=== PATIENT | male | born 1990 | race Caucasian/White ===

== ENCOUNTER 2016-09-12 20:47 | Emergency (ER) | payer SELFPAY ==
[2016-09-12 21:00] VITALS: BP 137/85
--- NOTE | 2016-09-12 21:08 | EDM.PDOC ---
ED HPI RENAL/ - General Chief Complaint: Genitourinary Problem Stated Complaint: BACK PAIN PAIN DURING URINATION Time Seen by Provider: 09/12/16 20:52 Source of Information: Reports: Patient History Limitations: Reports: No limitations - History of Present Illness INITIAL COMMENTS - FREE TEXT/NARRATIVE: The patient presents with dysuria. This has been going on for about 3 weeks. The pain will come and go and at times he may have some low back pain. He has no abdominal pain, nausea or vomiting. He has never had a UTI before but he is concerned he may have one. Timing/Duration: Reports: Week(s): (3) Location: Reports: urethral Quality: Reports: burning Severity: mild Context: Denies: sick contact, recent surgery, recent trauma, lifting, activity/ exercise Associated Symptoms: Reports: dysuria, frequency, urgency. Denies: testicular pain, penile discharge - Related Data Allergies/ADRs: Allergies Allergy/AdvReac Type Severity Reaction Status Date / Time No Known Allergies Allergy Verified 09/12/16 21:00 Home Meds: Home Meds Doxycycline [Vibramycin] 100 mg PO Q12HR #14 cap 09/12/16 [Rx] Past Medical History - Past Health History Medical/Surgical History: Denies Medical/Surgical History Social & Family History - Tobacco Use Smoking Status *Q: Current Every Day Smoker Years of Tobacco use: 8 Packs/Tins Daily: 0.5 Used Tobacco, but Quit: No Second Hand Smoke Exposure: No - Recreational Drug Use Recreational Drug Use: No ED ROS GENERAL - Review of Systems Review Of Systems: See Below Constitutional: Reports: no symptoms HEENT: Reports: No symptoms Respiratory: Reports: No Symptoms Cardiovascular: Reports: No symptoms Endocrine: Reports: no symptoms GI/Abdominal: Reports: No symptoms : Reports: dysuria Musculoskeletal: Reports: no symptoms Skin: Reports: no symptoms Neurological: Reports: No Symptoms ED EXAM, RENAL/ - Physical Exam Exam: See Below Exam Limited By: No limitations General Appearance: alert, no apparent distress Ears: normal external exam Nose: normal inspection Head: atraumatic, normocephalic Neck: normal inspection Respiratory/Chest: no respiratory distress, lungs clear, normal breath sounds Cardiovascular: regular rate, rhythm, no edema, no murmur GI/Abdominal: soft, non tender, no organomegaly, no mass Back Exam: normal inspection Extremities: normal inspection Course - Vital Signs Last Recorded V/S: Last Vital Signs Temp 98.4 F 09/12/16 20:57 Pulse 86 09/12/16 20:57 Resp 18 09/12/16 20:57 BP 137/85 09/12/16 20:57 Pulse Ox 99 09/12/16 20:57 - Orders/Labs/Meds Labs: Laboratory Tests 09/12/16 Range/Units 21:00 Urine Color Yellow (Yellow) Urine Appearance Clear (Clear) Urine pH 6.5 (5.0-8.0) Ur Specific [place] 1.020 (1.005-1.030) Urine Protein Negative (Negative) Urine Glucose (UA) Negative (Negative) Urine Ketones Negative (Negative) Urine Occult Blood Negative (Negative) Urine Nitrite Negative (Negative) Urine Bilirubin Negative (Negative) Urine Urobilinogen 0.2 (0.2-1.0) Ur Leukocyte Esterase Trace H (Negative) Urine RBC Not seen (0-5) /hpf Urine WBC 0-5 (0-5) /hpf Ur Transition Epith Cell 0-5 (0-5) Urine Bacteria Not seen (FEW) /hpf Urine Mucus Not seen (FEW) /hpf - Re-Assessments/Exams Free Text/Narrative Re-Assessment/Exam: 09/12/16 21:44 His UA just was positive for a trace of leukocyte esterase. He said this did happen about 1 year ago and he was put on doxycycline and that helped. He does drink lots of fluids and he may have diluted his urine. I will try him on some doxycycline for a week. Departure - Departure Time of Disposition: 21:50 Disposition: Home, Self-Care 01 Condition: good Clinical Impression: Dysuria Prescriptions: Doxycycline [Vibramycin] 100 mg PO Q12HR #14 cap Referrals: Lori Gamboa PA-C [Physician Plumbing Hardware Assembler] - 1 Week Forms: ED Department Discharge Additional Instructions: Take the doxycycline 2 times per day for 1 week. Please return if you are worse.
== END 2016-09-12 21:57 | disposition home or self-care (01) ==
LOC: JD.ED 20:47
DX: R30.0 Dysuria (principal); F17.210 Nicotine dependence, cigarettes, uncomplicated
CPT/HCPCS: 81001; 99283

== ENCOUNTER 2017-05-18 19:23 | Emergency (ER) | payer SELFPAY ==
[2017-05-18 20:06] VITALS: BP 131/84
--- NOTE | 2017-05-18 21:18 | EDM.PDOC ---
ED HPI GENERAL MEDICAL PROBLEM - General Chief Complaint: General Stated Complaint: POSSIBLE TOOTH INFECTION Time Seen by Provider: 05/18/17 20:49 Source of Information: Reports: Patient History Limitations: Reports: No Limitations - History of Present Illness INITIAL COMMENTS - FREE TEXT/NARRATIVE: 26 year old male presents for evaluation and treatment of pain to the right upper molar. Reports pain started about 2 days ago and has steadily worsened. States the pain is in the right upper molar. Reports about 4 months ago he had a root canal done to the molar, no cap placed. Patient reports earlier he appreciated a "blister" to the surrounding tooth. Reports it popped and he developed a bad taste to his mouth. He reports associated facial pain, right ear pain, decreased sleep due to the pain. No fevers, chills, nausea or vomiting. Patient did call and make a dental appointment. Has an appointment with dental next Friday. Duration: Day(s): (2) Treatments PAPER CONE MACHINE TENDER: Reports: Other (see below) Other Treatments PAPER CONE MACHINE TENDER: motrin 4 hours ago Tooth/Teeth Pain Score (Numeric/FACES): 8 - Related Data Allergies Allergy/AdvReac Type Severity Reaction Status Date / Time No Known Allergies Allergy Verified 05/18/17 20:02 Home Meds: Home Meds . [No Known Home Meds] 05/18/17 [History] Past Medical History - Past Health History Medical/Surgical History: Denies Medical/Surgical History Social & Family History - Family History Family Medical History: Noncontributory - Tobacco Use Smoking Status *Q: Current Every Day Smoker Years of Tobacco use: 8 Packs/Tins Daily: 0.5 Used Tobacco, but Quit: No Second Hand Smoke Exposure: No - Caffeine Use Caffeine Use: Reports: Coffee, Energy Drinks, Soda - Recreational Drug Use Recreational Drug Use: No ED ROS GENERAL - Review of Systems Review Of Systems: See Below Constitutional: Denies: Fever HEENT: Reports: Dental Pain (right upprt molar), Ear Pain (right), Sinus Problem (right maxillary) GI/Abdominal: Denies: Nausea, Vomiting ED EXAM, GENERAL - Physical Exam Exam: See Below Exam Limited By: No Limitations General Appearance: Alert, WD/WN, Mild Distress Eye Exam: Bilateral Eye: Normal Inspection Ears: Normal External Exam, Normal Canal, Hearing Grossly Normal, Normal TMs Ear Exam: Bilateral Ear: Canal Normal, TM normal Nose: Normal Inspection Throat/Mouth: Normal Inspection, Normal Lips, Normal Oropharynx, Normal Voice, No Airway Compromise, Other (dental pain and tenderness to #3; swelling to the gums surrounding #3, dental abscess #3) Neck: Normal Inspection Respiratory/Chest: No Respiratory Distress, Lungs Clear, Normal Breath Sounds Cardiovascular: Normal Peripheral Pulses, Regular Rate, Rhythm Neurological: Alert, Oriented, Normal Cognition Psychiatric: Normal Affect, Normal Mood Skin Exam: Warm, Dry, Normal Color Course - Vital Signs Last Recorded V/S: Last Vital Signs Temp 36.6 C 05/18/17 20:03 Pulse 92 05/18/17 20:03 Resp BP 131/84 05/18/17 20:03 Pulse Ox 98 05/18/17 20:03 Departure - Departure Time of Disposition: 21:18 Disposition: Home, Self-Care 01 Condition: Good Clinical Impression: Dental abscess - Discharge Information Instructions: Dental Abscess, [id number] Referrals: Lori Gamboa PA-C [Primary Care Provider] - Forms: ED Department Discharge Additional Instructions: Rx for percocet 1-2 every 4-6 hours prn pain #20 Rx for augmetin 875-125 1 tab PO bid x 10 days [id number] ibuprofen as needed for pain. 600 mg every 6 hours. Percocet 1- 2 tabs every 4-6 hours as needed for pain. Do not drive or operate machinery within 12 hours of taking the Percocet. Percocet can be habit forming, I recommend you take as few of these as needed to control your pain. Augmentin 1 tab twice a day for 10 days. Take this with food. Recommend yogurt or a probiotic. Follow-up with dental as soon as you are able to. Please return to ER if your symptoms change or worsen.
== END 2017-05-18 21:36 | disposition home or self-care (01) ==
LOC: JD.ED 19:23
DX: K04.7 Periapical abscess without sinus (principal); F17.210 Nicotine dependence, cigarettes, uncomplicated
CPT/HCPCS: 99283

== ENCOUNTER 2018-02-19 21:23 | Emergency (ER) | payer OTHER ==
[2018-02-19 21:32] VITALS: BP 126/81
[2018-02-19] MEDS ORDERED: Penicillin V Potassium 500 MG Tab PO ONE (22:20)
--- NOTE | 2018-02-19 22:24 | EDM.PDOC ---
ED HPI GENERAL MEDICAL PROBLEM - General Chief Complaint: ENT Problem Stated Complaint: TOOTH PAIN Time Seen by Provider: 02/19/18 22:04 Source of Information: Reports: Patient, Old Records (ED 05/18/2017), Other ([place]) History Limitations: Reports: No Limitations - History of Present Illness INITIAL COMMENTS - FREE TEXT/NARRATIVE: The patient states that he has had a right upper toothache for the past 2 days, waxing and waning. He states that he had a prior root canal to that tooth. He states that he saw a blister next visit to this morning, which popped, giving him a bad taste in his mouth. He states that he has been taking ibuprofen, which has not been adequately helping. He states that he cannot get in to see a dentist for a month. Medical records from 05/18/2017 reflect a very similar story, including a right upper molar, status post a root canal, with a visible blister that popped. At that visit, the patient was prescribed 20 tablets of Percocet and a ten-day prescription for Augmentin. When asked about that visit now, the patient states that it was a different tooth that was the problem, that he did go to a dentist after that, and that he subsequently had a root canal. Review of the [place] PMP[place], however, indicates that the last time that the patient was prescribed an opioid was that last ED visit on 05/18/2017. The patient does not have a PCP. Oral/Mouth Pain Score (Numeric/FACES): 7 - Related Data Allergies Allergy/AdvReac Type Severity Reaction Status Date / Time No Known Allergies Allergy Verified 02/19/18 21:30 Home Meds: Home Meds . [No Known Home Meds] 05/18/17 [History] Past Medical History - Past Health History Medical/Surgical History: Denies Medical/Surgical History Social & Family History - Family History Family Medical History: Noncontributory - Tobacco Use Smoking Status *Q: Current Every Day Smoker Years of Tobacco use: 11 Packs/Tins Daily: 0.5 - Caffeine Use Caffeine Use: Reports: Coffee - Alcohol Use Alcohol Use History: No - Recreational Drug Use Recreational Drug Use: No - Living Situation & Occupation Living situation: Reports: , with Spouse, with Family (3 daughters) ED ROS ENT - Review of Systems Review Of Systems: ROS reveals no pertinent complaints other than HPI. ED EXAM, ENT - Physical Exam Exam: See Below Exam Limited By: No Limitations General Appearance: Alert, WD/WN, No Apparent Distress Eye Exam: Bilateral Eye: EOMI, Normal Inspection Ears: Normal External Exam, Normal Canal, Hearing Grossly Normal, Normal TMs Nose: Normal Inspection, Normal Mucousa, No Blood Mouth/Throat: Normal Lips, Normal Oropharynx, Other (Tooth #1 absent. Tooth #3 ( the tooth of concern) with anterior summer. Tooth #5 with anterior summer. Teeth # 5, 6, 7, 8 with significant gingivitis. Tooth #9 with summer. Tooth #10 with extensive summer. Teeth #10, 11, 12 with significant gingivitis. Tooth #14 with summer. Tooth #16 absent. Tooth #17 with anterior summer. Tooth #18 absent. Tooth #19 with filling. Tooth #23 with anterior summer. Teeth #29, 30 absent. No obvious dental abscess.) Head: Atraumatic, Normocephalic Neck: Normal Inspection, Supple, Non-Tender, Full Range of Motion. No: Lymphadenopathy (L), Lymphadenopathy (R) Course - Vital Signs Last Recorded V/S: Last Vital Signs Temp 36.8 C 02/19/18 21:27 Pulse 70 02/19/18 21:27 Resp 18 02/19/18 21:27 BP 126/81 02/19/18 21:27 Pulse Ox 95 02/19/18 21:27 - Orders/Labs/Meds Meds: Medications Discontinued Medications Generic Name Dose Route Start Last Admin Trade Name Freq PRN Reason Stop Dose Admin Penicillin V Potassium 500 mg 02/19/18 22:20 02/19/18 22:36 Veetids PO 02/19/18 22:21 500 mg ONETIME ONE Administration - Re-Assessments/Exams Free Text/Narrative Re-Assessment/Exam: 02/19/18 22:21 The patient appears to have extensive dental disease, although I do not see a specific infection around tooth #3. Nevertheless, I will start the patient on oral penicillin. He prefers to obtain that through [facility]. The patient declined an offer for prescription naproxen. We will provide the patient with a list of local dentists that hopefully he can see in less than one month. Departure - Departure Time of Disposition: 22:21 Disposition: Home, Self-Care 01 Condition: Good Clinical Impression: Dentalgia, Dental decay - Discharge Information *PRESCRIPTION DRUG MONITORING PROGRAM REVIEWED*: Yes *COPY OF PRESCRIPTION DRUG MONITORING REPORT IN PATIENT ERIKA: No Referrals: PCP,None [Primary Care Provider] - Forms: ED Department Discharge Additional Instructions: You were seen in the emergency room for an upper right toothache. On examination, you have extensive dental decay, however, no specific infection was seen around the painful tooth. You have been started on the antibiotic penicillin. A prescription for penicillin has been provided. Take one tablet every 6 hours, as prescribed. Finish the entire prescription unless told otherwise by a Dentist. A list of local dentists has been provided to you. We recommend that you follow- up within 10 days, if at all possible. If any other problems, please do not hesitate to return to the ER.
== END 2018-02-19 22:35 | disposition home or self-care (01) ==
LOC: JD.ED 21:23
DX: K02.9 Dental caries, unspecified (principal); F17.210 Nicotine dependence, cigarettes, uncomplicated
CPT/HCPCS: 99282; A9270; 99283

== ENCOUNTER 2019-07-23 19:23 | Emergency (ER) | payer BC ==
[2019-07-23 19:58] VITALS: BP 138/81; PULSE 81
--- NOTE | 2019-07-23 20:12 | EDM.PDOC ---
ED HPI GENERAL MEDICAL PROBLEM - General Chief Complaint: ENT Problem Stated Complaint: EYE GOOP Time Seen by Provider: 07/23/19 20:04 Source of Information: Reports: Patient History Limitations: Reports: No Limitations - History of Present Illness INITIAL COMMENTS - FREE TEXT/NARRATIVE: Patient is unfortunate 28-year-old male who presents emergency Department today with complaint of I lateral eye drainage. Patient reports she' s had cough congestion runny nose for the past 3 days no fever no chills no nausea no vomiting today this morning he woke up with eye matted shut and purulent drainage from bilateral conjunctiva, fever no chills no chest pain no shortness of breath - Related Data Allergies Allergy/AdvReac Type Severity Reaction Status Date / Time No Known Allergies Allergy Verified 07/23/19 19:58 Home Meds: Home Meds Polymyxin B Sulf/Trimethoprim [Polytrim Eye Drops] 4 drop EYEBOTH Q4H 5 Days #1 bottle 07/23/19 [Rx] Past Medical History - Past Health History Medical/Surgical History: Denies Medical/Surgical History Social & Family History - Family History Family Medical History: Noncontributory - Tobacco Use Smoking Status *Q: Never Smoker Second Hand Smoke Exposure: No - Caffeine Use Caffeine Use: Reports: None - Recreational Drug Use Recreational Drug Use: No - Living Situation & Occupation Living situation: Reports: , with Spouse, with Family (3 daughters) ED ROS ENT - Review of Systems Review Of Systems: See Below Constitutional: Denies: Fever, Chills HEENT: Reports: Other (eye drainage) ED EXAM, ENT - Physical Exam Exam: See Below Exam Limited By: No Limitations General Appearance: Alert, WD/WN, Mild Distress Eye Exam: Bilateral Eye: Other ( bilateral conjunctival drainage) Nose: Normal Inspection, Normal Mucousa, No Blood Mouth/Throat: Normal Inspection, Normal Gums, Normal Lips, Normal Oropharynx, Normal Teeth Head: Atraumatic, Normocephalic Neck: Normal Inspection, Supple, Non-Tender, Full Range of Motion Respiratory/Chest: No Respiratory Distress, Lungs Clear, Normal Breath Sounds, No Accessory Muscle Use, Chest Non-Tender Cardiovascular: Normal Peripheral Pulses, Regular Rate, Rhythm, No Edema, No Gallop, No JVD, No Murmur, No Rub Back: Normal Inspection, Full Range of Motion Extremities: Normal Inspection, Normal Range of Motion, Non-Tender, No Pedal Edema, Normal Capillary Refill Neurological: Alert, Oriented Skin: Warm, Dry Course - Vital Signs Last Recorded V/S: Last Vital Signs Temp 97.0 F 07/23/19 19:57 Pulse 81 07/23/19 19:57 Resp 16 07/23/19 19:57 BP 138/81 07/23/19 19:57 Pulse Ox 100 07/23/19 19:57 Departure - Departure Time of Disposition: 20:11 Disposition: Still A Patient 28 Clinical Impression: Conjunctivitis Qualifiers: Conjunctivitis type: acute Acute conjunctivitis type: bacterial Laterality: bilateral Qualified Code(s): H10.33 - Unspecified acute conjunctivitis, bilateral - Discharge Information Prescriptions: Polymyxin B Sulf/Trimethoprim [Polytrim Eye Drops] 4 drop EYEBOTH Q4H 5 Days #1 bottle Referrals: PCP,None [Primary Care Provider] - Forms: ED Department Discharge, ED Return to Work/School Form Additional Instructions: Home, rest, no work until on antibiotics for 24 hours, return as needed for worsening condition Sepsis Event Note - Evaluation Sepsis Screening Result: No Definite Risk - Focused Exam Vital Signs: Vital Signs Temp Pulse Resp BP Pulse Ox 07/23/19 19:57 97.0 F 81 16 138/81 100 Date Exam was Performed: 07/23/19 Time Exam was Performed: 20:09
== END 2019-07-23 20:38 | disposition still patient (30) ==
LOC: JD.ED 19:23
DX: H10.33 Unspecified acute conjunctivitis, bilateral (principal)
CPT/HCPCS: 99282; 99283

== ENCOUNTER 2020-05-07 10:45 | Emergency (ER) | payer BC ==
[2020-05-07 11:26] VITALS: BP 123/78; PULSE 88
[2020-05-07] MEDS ORDERED: Cyclobenzaprine 10 MG Tab PO ONE (11:56)
[2020-05-07] MEDS ORDERED: Ketorolac 60 MG/2 ML SDV IM ONE (11:56)
--- NOTE | 2020-05-07 12:30 | EDM.PDOC ---
ED HPI GENERAL MEDICAL PROBLEM - General Chief Complaint: Back Pain or Injury Stated Complaint: BACK PAIN Time Seen by Provider: 05/07/20 11:52 Source of Information: Reports: Patient, RN Notes Reviewed History Limitations: Reports: No Limitations - History of Present Illness INITIAL COMMENTS - FREE TEXT/NARRATIVE: Patient is a 29-year-old male presenting to the emergency department with complaints of pain to his right upper chest wall and right upper back. He states on of last week, he was lifting a hydraulic motor above his head when he felt something pull in his shoulder and chest. Since then he has been experiencing pain. When patient is not moving, the pain resolves, however any any deep breathing or movement causes increase in pain. He denies any traumatic injury. The motor did not fall or hit him. He has been using [id number] ibuprofen and Aleve for discomfort with little relief. 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 BULK DRIVER: Reports: Other (see below) Other 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 BULK DRIVER: motrin Right Upper Back Pain Score (Numeric/FACES): 2 - Related Data Allergies Allergy/AdvReac Type Severity Reaction Status Date / Time No Known Allergies Allergy Verified 07/23/19 19:58 Home Meds: Home Meds ALPRAZolam [Xanax] 0.25 mg PO ASDIRECTED 05/07/20 [History] FLUoxetine [PROzac] 40 mg PO DAILY 05/07/20 [History] Past Medical History - Past Health History Medical/Surgical History: Denies Medical/Surgical History Psychiatric History: Reports: Anxiety, Depression Social & Family History - Family History Family Medical History: Noncontributory - Tobacco Use Tobacco Use Status *Q: Never Tobacco User - Caffeine Use Caffeine Use: Reports: Coffee, Tea - Recreational Drug Use Recreational Drug Use: No - Living Situation & Occupation Living situation: Reports: , with Spouse, with Family (3 daughters) ED ROS GENERAL - Review of Systems Review Of Systems: See Below Constitutional: Reports: No Symptoms HEENT: Reports: No Symptoms Respiratory: Reports: No Symptoms. Denies: Shortness of Breath, Cough Cardiovascular: Reports: No Symptoms Endocrine: Reports: No Symptoms GI/Abdominal: Reports: No Symptoms : Reports: No Symptoms Musculoskeletal: Reports: Other (Right upper chest wall/shoulder and right upper back pain) Skin: Reports: No Symptoms Neurological: Reports: No Symptoms Psychiatric: Reports: No Symptoms Hematologic/Lymphatic: Reports: No Symptoms Immunologic: Reports: No Symptoms ED EXAM, UPPER BACK/NECK PAIN - Physical Exam Exam: See Below General Appearance: Alert, WD/WN, No Apparent Distress Neck Exam: Non-Tender, Full Range of Motion, Normal Alignment, Normal Inspection Cardiovascular/Respiratory: Regular Rate, Rhythm, No M/R/G, Normal Peripheral Pulses, No JVD, Normal Breath Sounds, No Respiratory Distress, Other (Tenderness to palpation of the right upper chest wall into the right shoulder and extending into the right upper back.) GI/Abdominal: Normal Bowel Sounds, Soft, Non-Tender, No Organomegaly, No Distention, No Abnormal Bruit, No Mass 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-XII nml As Tested, No Motor/Sensory Deficits, Alert, Normal Mood/Affect, Oriented x 3 Psychiatric: Normal Affect, Normal Mood Skin Exam: Normal Color, Warm/Dry Lymphatic: No Adenopathy Course - Vital Signs Last Recorded V/S: Last Vital Signs Temp 98.2 F 05/07/20 11:24 Pulse 88 05/07/20 11:24 Resp 20 05/07/20 11:24 BP 123/78 05/07/20 11:24 Pulse Ox 98 05/07/20 11:24 - Orders/Labs/Meds Meds: Medications Discontinued Medications Generic Name Dose Route Start Last Admin Trade Name Freq PRN Reason Stop Dose Admin Cyclobenzaprine HCl 10 mg 05/07/20 11:56 Flexeril PO 05/07/20 11:57 ONETIME ONE Ketorolac Tromethamine 60 mg 05/07/20 11:56 Toradol IM 05/07/20 11:57 ONETIME ONE - Re-Assessments/Exams Free Text/Narrative Re-Assessment/Exam: Patient is a 29-year-old male presenting to the emergency department with complaints of right upper chest wall pain into his right shoulder and right upper back. On exam, the area is significant tender to palpation. Pain resolves when he is not moving but worsens with deep breathing and moving. We will give him a shot of Toradol and a dose of Flexeril in the ER. He will be given a prescription for Naprosyn and Flexeril. I will also provide him with a note for work to avoid repetitive use with the right arm. Discharge instructions as documented. Departure - Departure Time of Disposition: 12:29 Disposition: Home, Self-Care 01 Condition: Good Clinical Impression: Muscle strain - Discharge Information *PRESCRIPTION DRUG MONITORING PROGRAM REVIEWED*: No *COPY OF PRESCRIPTION DRUG MONITORING REPORT IN PATIENT ERIKA: No Instructions: Muscle Strain, [id number] Referrals: Sylvester Alves MD [Primary Care Provider] - Forms: ED Department Discharge, ED Return to Work/School Form Additional Instructions: You were seen in the emergency department today for pain in your right upper chest wall and right upper back related to lifting a heavy object above your head late last week. Your exam is consistent with a diagnosis of muscle strain. While in the ER, you received an injection of Toradol as well as a dose of Flexeril which is a muscle relaxer. You have been provided a prescription for Naprosyn and Flexeril. Take these medications as prescribed. Recommend no heavy lifting with your right arm for the remainder of the week. If you are still having significant discomfort by Friday or of this week, I would recommend follow-up in the clinic. Return to ER as needed. Sepsis Event Note (ED) - Evaluation Sepsis Screening Result: No Definite Risk - Focused Exam Vital Signs: Vital Signs Temp Pulse Resp BP Pulse Ox 05/07/20 11:24 98.2 F 88 20 123/78 98
== END 2020-05-07 13:00 | disposition home or self-care (01) ==
LOC: JD.ED 10:45
DX: S29.011A Strain of muscle and tendon of front wall of thorax, initial encounter (principal); F41.9 Anxiety disorder, unspecified; F32.9 Major depressive disorder, single episode, unspecified; Z79.899 Other long term (current) drug therapy; X50.9XXA Other and unspecified overexertion or strenuous movements or postures, initial encounter
CPT/HCPCS: 96372; 99284; A9270; J1885; 99283